=== PATIENT | male | born 1950 | race Caucasian/White ===

== ENCOUNTER 2017-09-01 02:18 | Emergency (ER) | payer OTHER ==
[~2017-09-01] VITALS: Ht 172.7 cm; Wt 81.7 kg
== END 2017-09-01 03:03 | disposition home or self-care (01) ==
LOC: ER 02:18
DX: T83.091A Other mechanical complication of indwelling urethral catheter, initial encounter (principal)
CPT/HCPCS: 51700; 51798; 99283